=== PATIENT | male | born 1960 | race Caucasian/White ===

== ENCOUNTER 2021-03-09 17:45 | Inpatient (IN) | payer BC ==
[~2021-03-09] VITALS: Ht 165.1 cm; Wt 97.5 kg
[~2021-03-09 17:45] MED LIST: ASPIRIN81 MG PO; BENICAR40 MG PO; CHLORTHALIDONE25 MG PO; CLONIDINE HCL0.1 MG PO; CRESTOR 10 MG T10 MG PO; HYDROCHLOROTHIA25 MG PO; IMDUR ER TAB 3030 MG PO; LEVOCETIRIZINE D5 MG PO; LEVOFLOXACIN750 MG PO; LISINOPRIL40 MG PO; METFORMIN HCL1000 MG PO; NAPROXEN500 MG PO; NITROSTAT0.4 MG SL; PEPCID40 MG PO; PREDNISONE 20 M20 MG PO; PROMETHAZINE-D473 M1 PO; SUPER B COMPLE1 EAC1 PO; TOPROL XL25 MG PO; VITAMIN D325 MC2 PO; [UNRECOGNIZED DRUG - OTHER] PO
[2021-03-09 19:12] LABS: RED BLOOD COUNT 5.14 M/UL (4.20-5.50); WHITE BLOOD COUNT 12.4 K/UL (4.5-11.0)
[2021-03-09 19:44] LABS: BUN/CREATININE RATIO 28 (0-10)
[2021-03-10 04:55] LABS: HEMOGLOBIN 14.9 gm/dl (14.0-17.5); RED BLOOD COUNT 5.12 M/UL (4.20-5.50); WHITE BLOOD COUNT 13.4 K/UL (4.5-11.0)
[2021-03-10 05:29] LABS: BUN/CREATININE RATIO 25 (0-10)
[2021-03-10] MEDS ORDERED: NORVASC5 MG PO (13:37)
[2021-03-10] MEDS ORDERED: METFORMIN HCL1000 MG PO (13:37)
[2021-03-10] MEDS ORDERED: CRESTOR10 MG PO (13:37)
[2021-03-10] MEDS ORDERED: DRISDOL1250 MCG PO (13:37)
[2021-03-10] MEDS ORDERED: ASPIRIN EC81 MG PO (13:38)
[2021-03-10] MEDS ORDERED: OMEPRAZOLE20 MG PO (13:38)
[2021-03-10] MEDS ORDERED: ISOSORBIDE MONO30 MG PO (13:39)
[2021-03-10] MEDS ORDERED: ZESTRIL 40 MG T40 MG PO (13:39)
[2021-03-10] MEDS ORDERED: MULTIVITAMIN1 EACH PO (13:39)
[2021-03-10] MEDS ORDERED: VENTOLIN HFA 66.7 GM INH (13:40)
[2021-03-10] MEDS ORDERED: COLESTIPOL HCL1 GM PO (15:16)
[2021-03-11 05:13] LABS: HEMOGLOBIN 14.9 gm/dl (14.0-17.5); RED BLOOD COUNT 5.18 M/UL (4.20-5.50)
[2021-03-11 05:50] LABS: BUN/CREATININE RATIO 27 (0-10)
[2021-03-12 06:49] LABS: HEMOGLOBIN 15.6 gm/dl (14.0-17.5); RED BLOOD COUNT 5.45 M/UL (4.20-5.50)
[2021-03-12 07:39] LABS: BUN/CREATININE RATIO 30 (0-10)
[2021-03-14 04:01] LABS: HEMOGLOBIN 14.7 gm/dl (14.0-17.5); RED BLOOD COUNT 5.07 M/UL (4.20-5.50)
[2021-03-14 04:06] LABS: WHITE BLOOD COUNT 17.8 K/UL (4.5-11.0)
[2021-03-14 04:17] LABS: BUN/CREATININE RATIO 36 (0-10)
[2021-03-15 10:28] LABS: HEMOGLOBIN 14.2 gm/dl (14.0-17.5); RED BLOOD COUNT 4.91 M/UL (4.20-5.50); WHITE BLOOD COUNT 14.8 K/UL (4.5-11.0)
[2021-03-15 10:52] LABS: BUN/CREATININE RATIO 29 (0-10)
[2021-03-16 07:33] LABS: HEMOGLOBIN 14.3 gm/dl (14.0-17.5); RED BLOOD COUNT 5.22 M/UL (4.20-5.50); WHITE BLOOD COUNT 14.8 K/UL (4.5-11.0)
[2021-03-16 07:56] LABS: BUN/CREATININE RATIO 31 (0-10)
[2021-03-17 02:49] LABS: HEMOGLOBIN 14.4 gm/dl (14.0-17.5); RED BLOOD COUNT 4.98 M/UL (4.20-5.50); WHITE BLOOD COUNT 12.2 K/UL (4.5-11.0)
[2021-03-17 03:07] LABS: BUN/CREATININE RATIO 35 (0-10)
[2021-03-18 09:29] LABS: HEMOGLOBIN 15.2 gm/dl (14.0-17.5); RED BLOOD COUNT 5.25 M/UL (4.20-5.50); WHITE BLOOD COUNT 11.8 K/UL (4.5-11.0)
[2021-03-18 09:55] LABS: BUN/CREATININE RATIO 32 (0-10)
[2021-03-19 07:23] LABS: HEMOGLOBIN 14.6 gm/dl (14.0-17.5); RED BLOOD COUNT 5.39 M/UL (4.20-5.50); WHITE BLOOD COUNT 14.4 K/UL (4.5-11.0)
[2021-03-19 07:34] LABS: BUN/CREATININE RATIO 35 (0-10)
[2021-03-20 03:34] LABS: HEMOGLOBIN 14.5 gm/dl (14.0-17.5); RED BLOOD COUNT 5.04 M/UL (4.20-5.50); WHITE BLOOD COUNT 12.9 K/UL (4.5-11.0)
[2021-03-20 03:50] LABS: BUN/CREATININE RATIO 36 (0-10)
[2021-03-21 07:55] LABS: HEMOGLOBIN 15.4 gm/dl (14.0-17.5); RED BLOOD COUNT 5.32 M/UL (4.20-5.50); WHITE BLOOD COUNT 12.9 K/UL (4.5-11.0)
[2021-03-21 08:01] LABS: BUN/CREATININE RATIO 36 (0-10)
[2021-03-22 03:25] LABS: HEMOGLOBIN 14.8 gm/dl (14.0-17.5); RED BLOOD COUNT 5.09 M/UL (4.20-5.50); WHITE BLOOD COUNT 11.7 K/UL (4.5-11.0)
[2021-03-22 04:00] LABS: BUN/CREATININE RATIO 32 (0-10)
[2021-03-23 02:55] LABS: HEMOGLOBIN 14.8 gm/dl (14.0-17.5); RED BLOOD COUNT 5.12 M/UL (4.20-5.50); WHITE BLOOD COUNT 12.4 K/UL (4.5-11.0)
[2021-03-23 03:25] LABS: BUN/CREATININE RATIO 28 (0-10)
[2021-03-24 04:02] LABS: HEMOGLOBIN 14.5 gm/dl (14.0-17.5); RED BLOOD COUNT 5.35 M/UL (4.20-5.50); WHITE BLOOD COUNT 11.9 K/UL (4.5-11.0)
[2021-03-24 04:29] LABS: BUN/CREATININE RATIO 28 (0-10)
[2021-03-25 02:55] LABS: HEMOGLOBIN 14.6 gm/dl (14.0-17.5); RED BLOOD COUNT 5.36 M/UL (4.20-5.50); WHITE BLOOD COUNT 13.3 K/UL (4.5-11.0)
[2021-03-25 03:20] LABS: BUN/CREATININE RATIO 32 (0-10)
[2021-03-26 03:27] LABS: HEMOGLOBIN 14.3 gm/dl (14.0-17.5); RED BLOOD COUNT 5.24 M/UL (4.20-5.50)
[2021-03-26 03:45] LABS: BUN/CREATININE RATIO 31 (0-10)
[2021-03-27 03:38] LABS: HEMOGLOBIN 15.1 gm/dl (14.0-17.5); RED BLOOD COUNT 5.54 M/UL (4.20-5.50)
[2021-03-27 03:40] LABS: WHITE BLOOD COUNT 14.9 K/UL (4.5-11.0)
[2021-03-27 04:18] LABS: BUN/CREATININE RATIO 27 (0-10)
[2021-03-28 03:29] LABS: RED BLOOD COUNT 5.43 M/UL (4.20-5.50); WHITE BLOOD COUNT 14.5 K/UL (4.5-11.0)
[2021-03-28 04:02] LABS: BUN/CREATININE RATIO 28 (0-10)
[2021-03-29 03:13] LABS: HEMOGLOBIN 15.1 gm/dl (14.0-17.5); RED BLOOD COUNT 5.42 M/UL (4.20-5.50); WHITE BLOOD COUNT 13.6 K/UL (4.5-11.0)
[2021-03-29 03:34] LABS: BUN/CREATININE RATIO 29 (0-10)
[2021-03-30 02:55] LABS: HEMOGLOBIN 14.6 gm/dl (14.0-17.5); RED BLOOD COUNT 5.23 M/UL (4.20-5.50); WHITE BLOOD COUNT 12.6 K/UL (4.5-11.0)
[2021-03-30 03:12] LABS: BUN/CREATININE RATIO 29 (0-10)
[2021-04-01 02:58] LABS: BUN/CREATININE RATIO 32 (0-10)
[2021-04-03 11:14] LABS: BUN/CREATININE RATIO 29 (0-10)
[2021-04-04 03:51] LABS: HEMOGLOBIN 14.9 gm/dl (14.0-17.5); RED BLOOD COUNT 5.32 M/UL (4.20-5.50); WHITE BLOOD COUNT 12.7 K/UL (4.5-11.0)
[2021-04-04 04:27] LABS: BUN/CREATININE RATIO 29 (0-10)
[2021-04-05 03:16] LABS: HEMOGLOBIN 15.8 gm/dl (14.0-17.5); RED BLOOD COUNT 5.41 M/UL (4.20-5.50); WHITE BLOOD COUNT 12.4 K/UL (4.5-11.0)
[2021-04-05 03:34] LABS: BUN/CREATININE RATIO 30 (0-10)
[2021-04-06 03:51] LABS: HEMOGLOBIN 14.3 gm/dl (14.0-17.5); RED BLOOD COUNT 4.91 M/UL (4.20-5.50)
[2021-04-06 04:12] LABS: BUN/CREATININE RATIO 23 (0-10)
[2021-04-07 03:40] LABS: HEMOGLOBIN 13.9 gm/dl (14.0-17.5); RED BLOOD COUNT 4.79 M/UL (4.20-5.50); WHITE BLOOD COUNT 8.6 K/UL (4.5-11.0)
[2021-04-07 04:20] LABS: BUN/CREATININE RATIO 23 (0-10)
[2021-04-08 03:42] LABS: HEMOGLOBIN 13.7 gm/dl (14.0-17.5); RED BLOOD COUNT 4.77 M/UL (4.20-5.50); WHITE BLOOD COUNT 7.7 K/UL (4.5-11.0)
[2021-04-08 04:05] LABS: BUN/CREATININE RATIO 28 (0-10)
[2021-04-09 03:33] LABS: HEMOGLOBIN 14.3 gm/dl (14.0-17.5); RED BLOOD COUNT 4.89 M/UL (4.20-5.50); WHITE BLOOD COUNT 8.4 K/UL (4.5-11.0)
[2021-04-09 03:58] LABS: BUN/CREATININE RATIO 25 (0-10)
[2021-04-10 02:57] LABS: HEMOGLOBIN 14.1 gm/dl (14.0-17.5); RED BLOOD COUNT 4.87 M/UL (4.20-5.50); WHITE BLOOD COUNT 8.1 K/UL (4.5-11.0)
[2021-04-10 03:22] LABS: BUN/CREATININE RATIO 27 (0-10)
[2021-04-12 17:33] LABS: BUN/CREATININE RATIO 28 (0-10)
[2021-04-14 02:44] LABS: HEMOGLOBIN 13.3 gm/dl (14.0-17.5); RED BLOOD COUNT 4.6 M/UL (4.20-5.50); WHITE BLOOD COUNT 7.7 K/UL (4.5-11.0)
[2021-04-14 03:04] LABS: BUN/CREATININE RATIO 24 (0-10)
[2021-04-17 02:39] LABS: HEMOGLOBIN 12.2 gm/dl (14.0-17.5); RED BLOOD COUNT 4.24 M/UL (4.20-5.50); WHITE BLOOD COUNT 7.2 K/UL (4.5-11.0)
[2021-04-17 03:05] LABS: BUN/CREATININE RATIO 22 (0-10)
[2021-04-18 12:16] LABS: RED BLOOD COUNT 3.85 M/UL (4.20-5.50); WHITE BLOOD COUNT 7.9 K/UL (4.5-11.0)
[2021-04-18 12:43] LABS: BUN/CREATININE RATIO 18 (0-10)
--- NOTE | 2021-04-19 23:18 | NUR ---
PT AT 1939 PER LAZ BROWN, RN AND ELVIS LIVINGSTON, RN IN HOSPITAL ROOM 610. FAMILY AT BEDSIDE. CONCHITA NOTIFIED AND CONCHITA ASSOCIATE RELEASED PT D/T COVID STATUS. FAMILY REQUESTED [facility] IN [place], [place]. WALKER LIBRARY HELPER ARRIVED ON THE FLOOR ACCOMPANIED BY SECURITY AT 2240. FAMILY REQUESTED THAT PT REMAIN IN ROOM SLIGHTLY LONGER SO PATIENT'S DAUGHTER COULD COME TO HOSPITAL TO VIEW HIM. DAUGHTER ARRIVED AT APPROXIMATELY 2250 AND PATIENT WAS REMOVED FROM FACILITY AT APPROXIMATELY 2315. FAMILY HAS SINCE LEFT WITH ALL PATIENT'S BELONGINGS EXCEPT HOME HEALTH O2 TANKS, WHICH WERE PUT IN EQUIPMENT ROOM FOR HOME HEALTH TO RETRIEVE SO PT'S DIDN'T HAVE TO TAKE THEM HOME TONIGHT.
== END 2021-04-19 19:40 | disposition expired | DRG 177 ==
LOC: ER1 17:45 → CDU 19:44 → PROG CARE 19:44 → MED SURG 4 03-10 13:56 → PROG CARE 03-12 13:24
PROVIDERS: Internal Medicine; Internal Medicine Infectious Disease; Internal Medicine Pulmonary Disease; Physician Assistant Medical; ADMIT Internal Medicine
PROC: B24BZZ4 Ultrasonography of Heart with Aorta, Transesophageal (ICD-10-PCS; principal; 2021-03-09)
PROC: 8E0ZXY6 Isolation (ICD-10-PCS; 2021-03-09)
PROC: 3E0333Z Introduction of Anti-inflammatory into Peripheral Vein, Percutaneous Approach (ICD-10-PCS; 2021-03-09)
PROC: XW033E5 Introduction of Remdesivir Anti-infective into Peripheral Vein, Percutaneous Approach, New Technology Group 5 (ICD-10-PCS; 2021-03-09)
PROC: 5A0955A Assistance with Respiratory Ventilation, Greater than 96 Consecutive Hours, High Flow/Velocity Cannula (ICD-10-PCS; 2021-03-09)
PROC: 5A09357 Assistance with Respiratory Ventilation, Less than 24 Consecutive Hours, Continuous Positive Airway Pressure (ICD-10-PCS; 2021-03-12)
DX: U07.1 COVID-19 (principal); J12.82 Pneumonia due to coronavirus disease 2019; J15.9 Unspecified bacterial pneumonia; J80 Acute respiratory distress syndrome; E87.1 Hypo-osmolality and hyponatremia; N17.9 Acute kidney failure, unspecified; Z51.5 Encounter for palliative care; D69.6 Thrombocytopenia, unspecified; E78.5 Hyperlipidemia, unspecified; E66.9 Obesity, unspecified; K58.9 Irritable bowel syndrome, unspecified; I12.9 Hypertensive chronic kidney disease with stage 1 through stage 4 chronic kidney disease, or unspecified chronic kidney disease; E11.22 Type 2 diabetes mellitus with diabetic chronic kidney disease; K59.00 Constipation, unspecified; K21.9 Gastro-esophageal reflux disease without esophagitis; N18.9 Chronic kidney disease, unspecified; E86.1 Hypovolemia; F17.210 Nicotine dependence, cigarettes, uncomplicated; L89.322 Pressure ulcer of left buttock, stage 2; D72.828 Other elevated white blood cell count; T38.0X5A Adverse effect of glucocorticoids and synthetic analogues, initial encounter; E86.0 Dehydration; Z79.4 Long term (current) use of insulin; Z98.890 Other specified postprocedural states; Z90.49 Acquired absence of other specified parts of digestive tract; Z82.49 Family history of ischemic heart disease and other diseases of the circulatory system; Z83.49 Family history of other endocrine, nutritional and metabolic diseases; Z79.82 Long term (current) use of aspirin; Z68.35 Body mass index [BMI] 35.0-35.9, adult; Z91.14 Patient's other noncompliance with medication regimen
CPT/HCPCS: ECHO; 36415; 36600; 71045; 76700; 80048; 80053; 82728; 82803; 82962; 83036; 83605; 83615; 83735; 83880; 84100; 84484; 85025; 85027; 85379; 85384; 85610; 85730; 86140; 87040; 87081; 93005; 93306; 94640; 94660; 94664; 94667; 94668; 94760; 96374; 97110-GP-CQ; 97116; 97116-GP-CQ; 97161; 97530-GP-CQ; 99285; A6212; J0360; J0456; J1100; J1205; J1650; J1940; J2060; J2185; J2270; J3370; J7030; J7040; J7070; U0002